=== PATIENT | female | born 1945 | race African-American/Black ===

== ENCOUNTER 2020-06-04 18:30 | Observation (INO) ==
[2020-06-04 20:14] LABS: Basophils % 0.4 % (0.0-0.8); Eosinophils # 0.3 10*3/uL (0.0-0.87); Eosinophils % 3.5 % (0.00-10.9); Hematocrit 37.6 VOL% (35.7-47.0); Immature Granulocytes % 0.4 %; Immature Granulocytes Absolute 0.04 #; Lymphocytes % 10.6 % (21.3-54.2); Mean Corpuscular HGB Conc 31.9 GM/DL (32-36); Mean Corpuscular Volume 94.7 FL (87-102); Mean Platelet Volume 9.1 FL (9.6-12.0); Monocytes % 7.5 % (1.7-12.7); Neutrophils % 77.6 % (38.7-73.9); Platelet Count 380 T/CUMM (130-400); Red Blood Count 3.97 MC/CUMM (3.8-5.5); Red Cell Distribution Width 17.1 % (9.3-17.3); White Blood Count 9.6 T/CUMM (4-12)
[2020-06-04 20:26] LABS: Calcium 9.3 MG/DL (8.5-10.1); Osmolality,Calculated 278.3 MOS/KG (273-304); Potassium 3.9 MMOL/L (3.5-5.1)
[2020-06-04] MEDS ORDERED: DEXTROSE 50% 25 GM/50 ML SYRINGE IV ONE (20:34)
[2020-06-04] MEDS ORDERED: DEXTROSE 50% 25 GM/50 ML VIAL IV STA (20:45)
[2020-06-04] MEDS ORDERED: ONDANSETRON 4 MG/2 ML VIAL IV PRN (21:38)
[2020-06-04] MEDS ORDERED: DEXTROSE 50% 25 GM/50 ML VIAL IV PRN (21:38)
[2020-06-04] MEDS ORDERED: ACETAMINOPHEN 325 MG TABLET PO PRN (21:38)
[2020-06-04] MEDS ORDERED: CALCIUM CARBONATE CHEW 500 MG TABLET PO PRN (21:38)
[2020-06-04] MEDS ORDERED: ALUMINUM/MAGNES/SIMETH MAX STR 30 ML UDCUP PO PRN (21:38)
[2020-06-04] MEDS ORDERED: DOCUSATE SODIUM 100 MG CAPSULE PO PRN (21:38)
[2020-06-04] MEDS ORDERED: GLUCAGON 1 MG VIAL IM PRN (21:38)
[2020-06-04] MEDS ORDERED: ZALEPLON 5 MG CAPSULE PO PRN (21:38)
[2020-06-04] MEDS ORDERED: SIMETHICONE CHEW 125 MG TABLET PO PRN (21:38)
[2020-06-04] MEDS ORDERED: DEXTROSE 5% NACL 0.45% 1,000 ML IV SCH (22:00)
[2020-06-04] MEDS ORDERED: ENOXAPARIN 40 MG/0.4 ML SYRINGE SUBCUT SCH (22:00)
[2020-06-04 23:02] LABS: Bacteria,Urine Occasional /HPF (Few); Bilirubin,Urine Negative (Negative); Blood, Urine Small mg/dL (Negative); Glucose,Urine (UA) Negative (Negative); Ketones,Urine Negative (Negative); Mucus,Urine Occasional /LPF (Occasional); Nitrite,Urine Negative (Negative); Protein,Urine 30 MG/DL; RBC,Urine 7 /HPF (0-4); Squamous Epithelial Cell,Urine Occasional /HPF (0-10); Urine Appearance CLEAR (Clear); Urine Color Yellow (Yellow); Urine Urobilinogen < 2.0 EU/DL (0.2-1.0); WBC,Urine 1 /HPF (0-6)
[2020-06-05] MEDS ORDERED: DEXTROSE 50% 25 GM/50 ML VIAL IV STA (00:25)
[2020-06-05 06:40] LABS: Calcium 9.1 MG/DL (8.5-10.1); Osmolality,Calculated 278.4 MOS/KG (273-304); Potassium 3.7 MMOL/L (3.5-5.1)
[2020-06-05] MEDS ORDERED: PANTOPRAZOLE 40 MG TABLET PO SCH (09:00)
[2020-06-05 12:24] VITALS: BP 149/60
[2020-06-05] MEDS ORDERED: HEPARIN LOCK FLUSH 500 UNIT/5 ML SYRINGE IV ONE (14:23)
== END 2020-06-05 14:51 | disposition home or self-care (01) ==
LOC: EDBD → EDUNIT# → N.ED 18:30 → N.EDINP 18:30 → N.4E 06-05 01:59
PROVIDERS: ADMIT Internal Medicine; ATTEND Internal Medicine